=== PATIENT | female | born 1935 ===

== ENCOUNTER 2016-09-01 14:41 | Outpatient (RCR) | payer OTHER | END 2016-09-20 | disposition home or self-care (01) | LOC: PTY 14:41 | DX: M54.6 Pain in thoracic spine (principal); G89.29 Other chronic pain; Z91.81 History of falling; R53.1 Weakness; E11.9 Type 2 diabetes mellitus without complications; M19.90 Unspecified osteoarthritis, unspecified site; R03.0 Elevated blood-pressure reading, without diagnosis of hypertension | CPT/HCPCS: 97110; G0283 ==

== ENCOUNTER 2016-09-22 13:30 | Outpatient (RCR) | payer OTHER | END 2016-10-21 | disposition home or self-care (01) | LOC: PTY 13:30 | DX: M54.6 Pain in thoracic spine (principal); G89.29 Other chronic pain | CPT/HCPCS: 97110; G0283 ==